=== PATIENT | female | born 2000 | race Caucasian/White ===

== ENCOUNTER 2025-03-20 17:43 | Emergency (ER) | payer BC, SELFPAY ==
[2025-03-20 17:52] VITALS: BP 137/92; PULSE 110; RESP 18; TEMP 36.5; O2SAT 98; BMI 29.1
--- NOTE | 2025-03-20 18:16 | DI.CT.S_ITS ---
PROCEDURE: CT ABDOMEN PELVIS W CON INDICATIONS: abd pain TECHNIQUE: After the administration of intravenous contrast, axial sections acquired from the lung bases to the pubic symphysis. Coronal and sagittal reformats were performed. For radiation dose reduction, the following was used: automated exposure control, adjustment of mA and/or kV according to patient size. COMPARISON: None. FINDINGS: Image quality: Diagnostic. Lower Chest: No significant findings. ABDOMEN: Liver: No solid mass. Gallbladder: Status post cholecystectomy Biliary ducts: No biliary dilation. Pancreas: No ductal dilation. Spleen: Size is within normal limits. Adrenal Glands: No adrenal nodules. Kidneys and Ureters: No hydronephrosis. No solid mass. No complex renal cystic lesion which requires follow up. Stomach and Bowel: Normal colonic caliber, without significant wall thickening. There is moderate to large amount of fluid in the stomach. There are also prominent small bowel loops, fluid filled. Significant amount of fluid seen in the right colon, no obstructing lesion or transition point seen. Peritoneum: No abnormal intraperitoneal fluid. No free air. Ventral Wall: No significant ventral hernia. Abdominal Nodes: No retroperitoneal or mesenteric adenopathy by size criteria. Vessels: Aorta and inferior vena cava are normal in size. PELVIS: Pelvic Organs: Unremarkable. Bladder: No bladder wall thickening, accounting for underdistention. Pelvic Nodes: No enlarged lymph nodes. Miscellaneous: No inguinal hernias are seen. Bones: No aggressive osseous abnormality. IMPRESSION: 1. Prominent fluid-filled stomach and small bowel, without signs of obstruction, may be due to nonspecific gastroenteritis. 2. No definite acute intra-abdominal abnormality otherwise. Dictated by: Solis Fortune M.D. on 03/20/2025 at 19:09 Approved by: Solis Fortune M.D. on 03/20/2025 at 19:14
[2025-03-20 18:56] LABS: Appearance Urine UA Slightly Cloudy; Color Urine UA ORANGE
[2025-03-20 18:57] LABS: Culture Indicated Urine Cult Not Indicated
[2025-03-20 19:01] LABS: Ictotest Urine Positive (Negative)
[2025-03-20 20:09] LABS: Add Manual Diff / Slide Review NO; Hematocrit 42.8 % (36-46); Hemoglobin 14.7 g/dL (12.0-16.0); Lymphocytes Absolute Auto 1700 /uL (1100-4500); Mean Corpuscular HGB Conc 34.3 % (30-36); Mean Corpuscular Hemoglobin 28.9 PG (26-34); Mean Corpuscular Volume 84.2 fL (80-100); Platelet Count 266 X10^3/uL (150-400)
[2025-03-20 20:37] LABS: Alanine Aminotransferase 18 IU/L (<35); Albumin 4.6 g/dL (3.5-5.0); Albumin Globulin Ratio 1.4 (1.0-2.8); Alkaline Phosphatase 64 U/L (38-126); Blood Urea Nitrogen 3 mg/dL (7-17); Calcium 9.1 mg/dL (8.4-10.2); Carbon Dioxide 21 mmol/L (22-32); Chloride 103 mmol/L (98-107); Estimated Glomerular Filt Rate > 60 mL/min (>60); Globulin 3.3 g/dL (1.7-4.1); Glucose 95 mg/dL (70-99); HEMOLYSIS < 15 (0-50); Lipase 32 U/L (23-300); Potassium 4.0 mmol/L (3.4-5.1); Sodium 137 mmol/L (137-145); Total Protein 7.9 g/dL (6.3-8.2)
[2025-03-20 21:04] VITALS: BP 132/75; PULSE 82; RESP 15; TEMP 36.9; O2SAT 100
[2025-03-20] MEDS: KETOROLAC 30 MG/ML VIAL IV (21:05)
[2025-03-20 22:42] VITALS: BP 121/79; PULSE 77; RESP 16; TEMP 36.6; O2SAT 98
--- NOTE | 2025-03-20 22:43 | ED.ABDPAIN ---
HPI - Abdominal Pain General Chief Complaint: Abdominal Pain Stated Complaint: abd pain, N/V/D , ALL DAY Time Seen by Provider: 03/20/25 18:03 Mode of arrival: Ambulatory History of Present Illness HPI narrative: 24-year-old female history of cholecystectomy presents with right lower quadrant pain along with nonbilious nonbloody nausea vomiting and new or worse bouts of diarrhea since last evening. She denies fever, chills, body aches, urinary complaints, back pain. She has not done anything for it, and nothing makes it better or worse. Other than what is stated 14 point review of system is negative. Related Data Previous Rx's ?Medication ?Instructions ?Recorded dicyclomine 20 mg tablet 20 mg PO BID #30 tabs 03/20/25 ondansetron 4 mg disintegrating 4 mg PO Q8H PRN nausea and 03/20/25 tablet vomiting #30 tabs Allergies Allergy/AdvReac Type Severity Reaction Status Date / Time azithromycin Allergy Severe Anaphylaxis Verified 03/20/25 17:57 Review of Systems Review of Systems ROS Unobtainable: All systems reviewed & are unremarkable except as noted in HPI and below Patient History Smoking Status: Current every day smoker tobacco type: vaping Exam Narrative Exam Narrative: GENERAL: [24] year old patient appears stated age. Well-developed patient, in mild distress. HEAD: Atraumatic. Normocephalic. EYES: Pupils equal round and reactive. Extraocular motions intact. No scleral icterus. No injection or drainage. NECK: Trachea midline. Non tender CARDIOVASCULAR: Regular rate and rhythm without murmurs, gallops, or rubs. RESPIRATORY: Clear to auscultation. Breath sounds equal bilaterally. No wheezes, rales, or rhonchi. GASTROINTESTINAL: Abdomen soft, non-tender, nondistended. EXTREMITIES: No edema or joint tenderness. BACK: Nontender without deformity or crepitance. No flank tenderness. NEURO: AOx3. SKIN: No rash or erythema of visible areas Initial Vital Signs Initial Vital Signs: Vital Signs Temperature 97.7 F 03/20/25 17:52 Pulse Rate 110 H 03/20/25 17:52 Respiratory Rate 18 03/20/25 17:52 Blood Pressure 137/92 H 03/20/25 17:52 Pulse Oximetry 98 03/20/25 17:52 Oxygen Delivery Method Room Air 03/20/25 17:52 Course Orders Ordered: ED Orders 03/20/25 18:16 CT abdomen pelvis w con Stat 03/20/25 18:33 Ictotest Urine Stat Urinalysis and Microscopic Stat 03/20/25 20:00 Complete Blood Count AUTO DIFF Stat Comprehensive Metabolic Panel Stat Lipase Stat Discontinued Medications Ketorolac Tromethamine (Ketorolac 30 Mg/Ml Vial) 30 mg IV NOW ONE Stop: 03/20/25 18:17 Last Admin: 03/20/25 21:05 Dose: 30 mg Documented By: AB Vital Signs Vital signs: Vital Signs - 8 hr 03/20/25 17:52 03/20/25 21:04 03/20/25 22:42 Temperature 97.7 F 98.4 F Pulse Rate 110 H 82 77 Respiratory Rate 18 15 Blood Pressure 137/92 H 132/75 Pulse Oximetry 98 100 98 Oxygen Delivery Method Room Air Room Air 03/20/25 22:42 Temperature 97.9 F Pulse Rate Respiratory Rate 16 Blood Pressure 121/79 Pulse Oximetry Oxygen Delivery Method MDM - Abdominal Pain Lab Data 03/20/25 20:00 03/20/25 20:00 Labs: Lab Results 03/20/25 03/20/25 Range/Units 18:33 20:00 WBC 9.8 (4.5-11.0) X10^3/uL RBC 5.08 (4.0-5.2) X10^6/uL Hgb 14.7 (12.0-16.0) g/dL Hct 42.8 (36-46) % MCV 84.2 (80-100) fL MCH 28.9 (26-34) PG MCHC 34.3 (30-36) % RDW 12.6 (11.6-14.8) % Plt Count 266 (150-400) X10^3/uL Neut % (Auto) 75.2 H (50-75) % Lymph % (Auto) 17.7 L (25-40) % [place] % (Auto) 5.5 (3-14) % Eos % (Auto) 1.1 L (2-4) % Baso % (Auto) 0.5 (0-2) % Neut # (Auto) 7400 H (7472-4233) /uL Lymph # (Auto) 1700 (7353-0946) /uL [place] # (Auto) 500 (0-900) /uL Eos # (Auto) 100 (0-450) /uL Baso # (Auto) 0 (0-100) /uL Sodium 137 (137-145) mmol/L Potassium 4.0 (3.4-5.1) mmol/L Chloride 103 (98-107) mmol/L Carbon Dioxide 21 L (22-32) mmol/L BUN 3 L (7-17) mg/dL Creatinine 0.75 (0.52-1.04) mg/dL Estimated GFR > 60 (>60) mL/min BUN/Creatinine Ratio 4.0 L (6-22) Glucose 95 (70-99) mg/dL Calcium 9.1 (8.4-10.2) mg/dL Total Bilirubin 1.1 (0.2-1.3) mg/dL AST 23 (14-36) IU/L ALT 18 (<35) IU/L Alkaline Phosphatase 64 (38-126) U/L Total Protein 7.9 (6.3-8.2) g/dL Albumin 4.6 (3.5-5.0) g/dL Globulin 3.3 (1.7-4.1) g/dL Albumin/Globulin Ratio 1.4 (1.0-2.8) Lipase 32 (23-300) U/L Urine Color [place] Urine Appearance Slightly cloudy Urine pH TNP Ur Specific [place] TNP Urine Protein TNP Urine Glucose (UA) TNP Urine Ketones TNP Urine Occult Blood TNP Urine Nitrate TNP Urine Bilirubin TNP Ur Bilirubin Confirm Positive H (Negative) Urine Urobilinogen TNP Ur Leukocyte Esterase TNP Urine RBC 1-5/hpf (0-5/HPF) Urine WBC 1-5/hpf (0-5/HPF) Ur Squamous Epith Cells 1-5 /hpf (0-5/HPF) Urine Bacteria None seen (None) Hyaline Casts 1-5/lpf (None) Urine Mucus 1+ H (Negative) Ur Culture Indicated? Cult not indicated Vol Urine Centrifuged Low vol <1ml unspun A Point of care testing: Point of Care Testing Test Results Negative Imaging Data CT scan - abdomen/pelvis: Radiologist's Impression: [address] [address] [address] Scan Report Signed Patient: cady Rajput MR#: [id number] : 2000 Acct:[id number] Age/Sex: 24 / F Date of Service: 03/20/25 Loc: ED Accession Number: [id number] Procedure: CT abdomen pelvis w con Ordering Provider: Fernando Contreras D.O. PROCEDURE: CT ABDOMEN PELVIS W CON INDICATIONS: abd pain TECHNIQUE: After the administration of intravenous contrast, axial sections acquired from the lung bases to the pubic symphysis. Coronal and sagittal reformats were performed. For radiation dose reduction, the following was used: automated exposure control, adjustment of mA and/or kV according to patient size. COMPARISON: None. FINDINGS: Image quality: Diagnostic. Lower Chest: No significant findings. ABDOMEN: Liver: No solid mass. Gallbladder: Status post cholecystectomy Biliary ducts: No biliary dilation. Pancreas: No ductal dilation. Spleen: Size is within normal limits. Adrenal Glands: No adrenal nodules. Kidneys and Ureters: No hydronephrosis. No solid mass. No complex renal cystic lesion which requires follow up. Stomach and Bowel: Normal colonic caliber, without significant wall thickening. There is moderate to large amount of fluid in the stomach. There are also prominent small bowel loops, fluid filled. Significant amount of fluid seen in the right colon, no obstructing lesion or transition point seen. Peritoneum: No abnormal intraperitoneal fluid. No free air. Ventral Wall: No significant ventral hernia. Abdominal Nodes: No retroperitoneal or mesenteric adenopathy by size criteria. Vessels: Aorta and inferior vena cava are normal in size. PELVIS: Pelvic Organs: Unremarkable. Bladder: No bladder wall thickening, accounting for underdistention. Pelvic Nodes: No enlarged lymph nodes. Miscellaneous: No inguinal hernias are seen. Bones: No aggressive osseous abnormality. IMPRESSION: 1. Prominent fluid-filled stomach and small bowel, without signs of obstruction, may be due to nonspecific gastroenteritis. 2. No definite acute intra-abdominal abnormality otherwise. MDM Narrative Medical decision making narrative: Vital signs, nurse triage note, medication list, previous ER visits, and all imaging studies reviewed. CT scan showed prominent fluid-filled stomach and small bowel without signs of obstruction may be due to nonspecific gastroenteritis. No definite acute intra-abdominal abnormality otherwise. CO2 21 BUN 3 creatinine 0.75. Urine bilirubin positive. Patient given Toradol here much better. We will DC home on Zofran and Bentyl. Differential diagnosis included appendicitis, viral gastroenteritis, dehydration, constipation. Discharge Plan Departure Patient Disposition: Home Clinical Impression: Nausea vomiting and diarrhea, Abdominal pain, acute, right lower quadrant Instructions: DI for Abdominal Pain-Adult Activity Restrictions/Additional Instructions: Return with new or worsening symptoms. Take your medicines as directed. Follow up with PCP in 1-2 weeks if no improvement in symptoms. Keep hydrated. Prescriptions: New ondansetron 4 mg tablet,disintegrating 4 mg PO Q8H PRN (Reason: nausea and vomiting) Qty: 30 0RF dicyclomine 20 mg tablet 20 mg PO BID Qty: 30 0RF Stand Alone Forms: Patient Portal/API
== END 2025-03-20 23:20 | disposition home or self-care (01) ==
PROVIDERS: Emergency Provider Family Medicine
DX: R10.31 Right lower quadrant pain (principal); R19.7 Diarrhea, unspecified; R11.2 Nausea with vomiting, unspecified
CPT/HCPCS: 36415; 74177; 80053; 81001; 81025; 83690; 85025; 96374; 99283; 99284; J1885; Q9967